=== PATIENT | female | born 2000 | race Caucasian/White ===

== ENCOUNTER 2020-08-29 17:05 | Emergency (ER) | payer BC, SELFPAY ==
--- NOTE | ~2020-08-29 | CT_ITS ---
EXAMINATION: CT abdomen pelvis w con DATE: 08/29/2020 18:54 INDICATION: Periumbilical pain TECHNIQUE: Computed tomography (CT) of the abdomen and pelvis was performed with 100 cc Omnipaque 350 intravenous contrast. The dose-length product was 283.81 mGy-cm. Automated exposure control and iter ative reconstruction technique were employed. COMPARISON: None. FINDINGS: Lung bases unremarkable. Heart size normal. No significant pleural or pericardial effusion. No significant vascular abnormality. No lymphadenopathy. The liver, spleen, pancreas, adrenal glands and right kidney are unremarkable. There is a left extrar enal pelvis. Nonobstructive bowel gas pattern. No abnormal pelvic masses or fluid collections. The ap pendix is not positively visualized. There is no pericecal inflammatory change to suggest appendicit is. Bladder is unremarkable. No free air or free fluid. Gallbladder is present. No acute osseous abno rmality. IMPRESSION: 1. No acute abdominal abnormality. Reviewed, dictated and finalized at location [facility]. [employer]
[2020-08-29 17:08] VITALS: BP 127/73; PULSE 77; RESP 18; TEMP 37; O2SAT 100
[2020-08-29 17:26] VITALS: BP 127/84; PULSE 77; RESP 18; O2SAT 100
--- NOTE | 2020-08-29 17:26 | ED.ABDPAIN ---
HPI - Abdominal Pain General Chief Complaint: Abdominal Pain Stated Complaint: ABD pain around belly button today Time Seen by Provider: 08/29/20 17:13 History of Present Illness HPI narrative: Squeezing periumbilical abdominal pain since this afternoon. Constant with paroxysms. Mild nausea. This is a new problem. No fever, vomiting, diarrhea. Related Data Home Medications Medication Instructions Recorded Confirmed Zoloft 08/29/20 Allergies Allergy/AdvReac Type Severity Reaction Status Date / Time amoxicillin AdvReac Rash Verified 08/29/20 17:10 Review of Systems Review of Systems: All systems reviewed & are unremarkable except as noted in HPI and below Cardiovascular: Cardiovascular: Denies chest pain Respiratory: Respiratory: Denies dyspnea Gastrointestinal: Gastrointestinal: Denies constipation, Denies diarrhea, Reports nausea and Denies vomiting Genitourinary: Genitourinary: Denies hematuria and Denies dysuria Musculoskeletal: Musculoskeletal: Denies back pain Neurologic: Reports system reviewed and no additional complaints, except as documented Psychiatric: Psychiatric: Reports anxiety [facility] Social History Social History (Updated 09/01/20 @ 15:38 by Blaine Izaguirre MD) Smoking status: Never smoker Substance use: never Exam Const: General: healthy appearing, no acute distress and alert Orientation/consciousness: patient oriented x3 HENMT: Head: normal to inspection Neck: Neck: normal visual inspection Resp: Effort & Inspection: normal respiratory effort Auscultation: clear to auscultation bilaterally, no rales, no rhonchi and no wheezes Cardio: Jugular venous distension: no JVD Rate: regular rate Rhythm: regular rhythm Heart sounds: no murmurs GI: Inspection: non-distended GI Palp: Yes Soft to palpation, Yes Tenderness to palpation present (GI) (minimal, periumbilical), No Guarding due to palpation present (GI) and No Rebound tenderness present Auscultation: normal bowel sounds Skin: General skin exam: normal color Neuro: General: patient oriented x3 and moves all extremities Speech: normal speech Extrem: General: no edema Psych: Appearance: grossly normal and well kempt Mental Status: mental status grossly normal Affect: Anxious affect present Attitude: cooperative Course Vital Signs Vital signs: Vital Signs Temperature 37.0 C 08/29/20 17:08 Pulse Rate 77 08/29/20 17:08 Respiratory Rate 18 08/29/20 17:08 Blood Pressure 127/73 08/29/20 17:08 Pulse Oximetry 100 08/29/20 17:08 Temperature 37.0 C 08/29/20 17:08 Pulse Rate 74 08/29/20 20:55 Respiratory Rate 18 08/29/20 20:55 Blood Pressure 114/75 08/29/20 20:55 Pulse Oximetry 100 08/29/20 20:55 MDM - Abdominal Pain MDM Narrative Medical decision making narrative: CT and labs reassuring. Pain improving with dicyclomine. Differential Diagnosis Differential diagnosis: Likely acute appendicitis, constipation, pancreatitis and other (IBS) Medical Records Attestation: I reviewed the patient's medical records. Lab Data Attestation: I reviewed the patient's lab results. Result diagrams: 08/29/20 17:24 08/29/20 17:24 Labs: Lab Results 08/29/20 08/29/20 08/29/20 Range/Units 17:24 17:24 17:37 WBC 6.0 (4.5-10.0) K/mm3 RBC 5.06 (4.2-5.4) M/mm3 Hgb 11.9 L (12.0-15.0) g/dL Hct 39.6 (37.0-47.0) % MCV 78.3 L (80-100) fl MCH 23.5 L (26-34) pg MCHC 30.1 L (32-36) g/dl RDW 14.0 (11.5-14.5) % Plt Count 238 (150-375) k/mm3 MPV 11.5 H (7.4-10.4) fl Immature Gran % (Auto) 0.2 (0-0.5) % Neut % (Auto) 50.4 (45.5-73.1) % Lymph % (Auto) 39.2 (18.3-44.2) % [place] % (Auto) 8.4 (2.6-8.5) % Eos % (Auto) 1.3 (0-4.4) % Baso % (Auto) 0.5 (0.2-1.2) % Lymph # (Auto) 2.34 (0.9-3.2) K/mm3 [place] # (Auto) 0.5 (0.1-0.6) K/mm3 Eos # (Auto) 0.1 (0-0.3) K/mm3 Baso # (Auto) 0.0
[2020-08-29 17:29] LABS: Basophils Percent Auto 0.5 % (0.2-1.2); Eosinophils Absolute Auto 0.1 K/mm3 (0-0.3); Eosinophils Percent Auto 1.3 % (0-4.4); Hematocrit 39.6 % (37.0-47.0); Hemoglobin 11.9 g/dL (12.0-15.0); Immature Granulocyte Absolute 0.01 K/mm3 (0.00-0.031); Immature Granulocyte Percent A 0.2 % (0-0.5); Lymphocytes Absolute Auto 2.34 K/mm3 (0.9-3.2); Lymphocytes Percent Auto 39.2 % (18.3-44.2); Mean Corpuscular HGB Conc 30.1 g/dl (32-36); Mean Corpuscular Hemoglobin 23.5 pg (26-34); Mean Corpuscular Volume 78.3 fl (80-100); Mean Platelet Volume 11.5 fl (7.4-10.4); Monocytes Absolute Auto 0.5 K/mm3 (0.1-0.6); Monocytes Percent Auto 8.4 % (2.6-8.5); Neutrophils Percent Auto 50.4 % (45.5-73.1); Platelet Count Result 238 k/mm3 (150-375); Red Blood Count 5.06 M/mm3 (4.2-5.4)
[2020-08-29 17:45] LABS: Alanine Aminotransferase 17 U/L (4-35); Albumin Level 4.4 g/dL (3.5-5.1); Alkaline Phosphatase 57 U/L (38-126); Anion Gap 6 mmol/L (8-16); Aspartate Amino Transferase 22 U/L (14-36); Bilirubin,Total 0.3 mg/dL (0.2-1.3); Blood Urea Nitrogen 7 mg/dL (7-17); Calcium 9.1 mg/dL (8.4-10.2); Carbon Dioxide 27 mmol/L (22-30); Chloride 106 mmol/L (98-107); Estimated CRCL calculation 118 ml/min; Estimated Glomerular Filt Rate > 60; Glucose 114 mg/dL (65-105); Lipase 85 U/L (23-300); Potassium 3.6 mmol/L (3.4-5.0); Sodium 139 mmol/L (137-145)
[2020-08-29 17:46] LABS: Add Urine Microscopic? NO; Appearance Urine Clear (Clear); Bilirubin Urine Negative (Negative); Blood Urine Negative (Negative); Color Urine Yellow (Yellow); Glucose Urine UA Negative (Negative); Ketones Urine Negative (Negative); Leukocyte Esterase Ur Negative LEU/UL (Negative); Nitrate Urine Negative (Negative); Protein Urine Negative (Negative); Specific Grav Ur 1.013 (1.001-1.035); Urobilinogen Urine Negative mg/dL (<2.0)
[2020-08-29 18:16] VITALS: BP 127/72; PULSE 68; RESP 20; O2SAT 100
[2020-08-29] MEDS: ONDANSETRON INJ 4 MG/2 ML VIAL IV PUSH (18:16)
[2020-08-29] MEDS: DICYCLOMINE HCL 10 MG CAPSULE 20 MG PO (19:26)
[2020-08-29 20:55] VITALS: BP 114/75; PULSE 74; RESP 18; O2SAT 100
== END 2020-08-29 20:57 | disposition home or self-care (01) ==
PROVIDERS: Emergency Provider Emergency Medicine; PCP Physician Assistant
DX: R10.33 Periumbilical pain (principal)
CPT/HCPCS: 36415; 74177; 80053; 81003; 81025; 83690; 85025; 96374; 99284; A9270; J2405; Q9967